=== PATIENT | female | born 1995 | race African-American/Black ===

== ENCOUNTER → 2021-03-13 13:39 | Outpatient (CLI) | payer OTHER, SELFPAY ==
[2021-03-13 15:40] LABS: Add Manual Diff / Slide Review NO; Basophils Absolute Auto 0 /uL (0-100); Basophils Percent Auto 0.3 % (0-2); Eosinophils Absolute Auto 100 /uL (0-450); Eosinophils Percent Auto 1.3 % (2-4); Hematocrit 37.4 % (36-46); Hemoglobin 12.5 g/dL (12.0-16.0); Lymphocytes Absolute Auto 1800 /uL (1100-4500); Lymphocytes Percent Auto 28.2 % (25-40); Mean Corpuscular HGB Conc 33.5 % (30-36); Mean Corpuscular Hemoglobin 31.1 PG (26-34); Mean Corpuscular Volume 92.7 fL (80-100); Monocytes Absolute Auto 300 /uL (0-900); Monocytes Percent Auto 4.4 % (3-14); Neutrophils Absolute Auto 4200 /uL (1500-7000); Neutrophils Percent Auto 65.8 % (50-75); Platelet Count 303 X10^3/uL (150-400); Red Blood Cell Count 4.04 X10^6/uL (4.0-5.2); Red Cell Distribution Width 12.3 % (11.6-14.8); White Blood Cell Count 6.4 X10^3/uL (4.5-11.0)
[2021-03-13 16:03] LABS: Alanine Aminotransferase 14 IU/L (<35); Albumin 4.3 g/dL (3.5-5.0); Albumin Globulin Ratio 1.5 (1.0-2.8); Alkaline Phosphatase 46 U/L (38-126); Aspartate Aminotransferase 20 IU/L (14-36); BUN Creatinine Ratio 20.3 (6-22); Bilirubin Total 0.7 mg/dL (0.2-1.3); Blood Urea Nitrogen 13 mg/dL (7-17); Calcium 9.6 mg/dL (8.4-10.2); Carbon Dioxide 28 mmol/L (22-32); Chloride 103 mmol/L (98-107); Estimated Glomerular Filt Rate > 60.0 mL/min (>60); Globulin 2.9 g/dL (1.7-4.1); Glucose 87 mg/dL (70-100); HEMOLYSIS < 15 (0-50); Potassium 4.1 mmol/L (3.4-5.1); Sodium 138 mmol/L (137-145); Total Protein 7.2 g/dL (6.3-8.2)
[2021-03-13 16:35] LABS: TSH w/ Reflex to FT4 0.37 uIU/mL (0.47-4.68)
== END ==
PROVIDERS: PCP Registered Nurse; Referring Provider Registered Nurse; Visit Provider Registered Nurse
DX: R53.83 Other fatigue (principal); N92.0 Excessive and frequent menstruation with regular cycle
CPT/HCPCS: 36415; 80053; 84439; 84443; 85025

== ENCOUNTER → 2021-04-26 11:59 | Outpatient (CLI) | payer OTHER, SELFPAY ==
[2021-04-26 14:19] LABS: Free T4, Direct Thyroxine 1.05 ng/dL (0.78-2.19)
[2021-04-26 14:33] LABS: Thyroid Stimulating Hormone 0.363 uIU/mL (0.47-4.68)
== END ==
PROVIDERS: PCP Registered Nurse; Referring Provider Registered Nurse; Visit Provider Registered Nurse
DX: R89.9 Unspecified abnormal finding in specimens from other organs, systems and tissues (principal)
CPT/HCPCS: 36415; 84439; 84443

== ENCOUNTER → 2021-05-28 15:38 | Outpatient (CLI) | payer OTHER, SELFPAY ==
--- NOTE | 2021-05-28 15:39 | DI.US.S_ITS ---
PROCEDURE: US PELVIC COMPLETE INDICATIONS: IRREGULAR BLEEDING POSTCOITAL TECHNIQUE: Real-time scanning was performed of the pelvic organs, with image documentation. Additional endovaginal scanning was necessary due to incomplete visualization of the adnexal and endometrial structures by transabdominal scanning. COMPARISON: None. FINDINGS: Uterus: Uterus is normal in size at 7.5 x 6.1 x 4.4 cm. The endometrium measures 9.5 mm in combined thickness. 2 a vascular hyperechoic endometrial masses are present largest measuring up to 1.5 cm and the smaller 0.4 cm. Ovaries: Dominant right follicular cyst measuring 2.0 cm; otherwise normal ovaries. Other: No pathologic free abdominal or pelvic fluid. IMPRESSION: 1. 2 echogenic endometrial masses present which may represent endometrial polyp; however other endometrial both benign or malignant neoplastic processes cannot be excluded. If indicated, pre and post contrast gynecologic protocol MRI could be performed for further assessment. Dictated by: Jean BRAGG Interpreted: Claudia Linares MD on 05/28/2021 at 16:36 Transcribed by: TRISH on 05/28/2021 at 17:01 Approved by: Claudia Linares M.D. on 05/28/2021 at 18:03
== END ==
PROVIDERS: PCP Registered Nurse; Referring Provider Obstetrics & Gynecology; Visit Provider Obstetrics & Gynecology
DX: N92.0 Excessive and frequent menstruation with regular cycle (principal); N93.0 Postcoital and contact bleeding; R19.09 Other intra-abdominal and pelvic swelling, mass and lump
CPT/HCPCS: 76830; 76856

== ENCOUNTER → 2021-08-23 16:07 | Outpatient (CLI) | payer OTHER, SELFPAY ==
[2021-08-23 17:42] LABS: COVID19 -Nasal RAPID Negative (Negative)
== END ==
PROVIDERS: PCP Registered Nurse; Visit Provider Obstetrics & Gynecology
DX: Z01.812 Encounter for preprocedural laboratory examination (principal); Z20.822 Contact with and (suspected) exposure to COVID-19
CPT/HCPCS: 87635

== ENCOUNTER 2021-08-24 10:20 | Day surgery (SDC) | payer OTHER, SELFPAY ==
[2021-08-23 08:13] VITALS: BMI 31.1
[2021-08-24] VITALS (14 sets, daily range): BP systolic 104–124; BP diastolic 57–81; PULSE 57–78; RESP 10–20; TEMP 36.3–36.8; O2SAT 98–100; BMI 31.1
--- NOTE | 2021-08-24 | PATH_ITS ---
[facility] Accession Number: [id number] . 01 Material submitted: . PART A: endometrium - ENDOMETRIAL CURETTINGS AND POLYP PART B: endocervix - ENDOCERVICAL CURETTINGS . 02 Diagnosis: A. Endometrium, Curettings and Polyp, Biopsy: Benign endometrial polyp. Separate fragments of proliferative endometrium with no evidence of neoplasia or hyperplasia. . B. Endocervical Curettings: Scant fragments of endocervical epithelium and squamous epithelium. Separate fragments of proliferative endometrium. No evidence of neoplasia or hyperplasia. [facility], [facility] 08/27/2021 1535 Local . 02 Electronically signed: . Roxann Davis MD, Pathologist NPI- [id number] . 01 Gross description: . A. The specimen is received in formalin, labeled endometrial curettings and polyp, and consists of multiple escobar-pink fragments of soft tissue admixed with clotted blood measuring 3.0 x 3.0 x 1.0 cm in aggregate. The specimen is filtered and entirely submitted in cassettes A1 and A2. B. The specimen is received in formalin, labeled endometrial curettings, and consists of multiple escobar-pink fragments of soft tissue measuring 1.5 x 1.0 x 0.2 cm in aggregate. The specimen is filtered and entirely submitted in cassette B1. ([id number]) /FRR 08/25/2021 1722 Local . 02 Pathologist provided ICD-10: N93.9 . 02 CPT . 716053, [id number] Performed at: 01 [facility] [address], [place], [place] [id number] MD Bennie Trimble MD Phone: [phone] Performed at: 02 [facility] [place] [address] [address] [place] [id number] MD Roxann Davis MD Phone: [phone]
[2021-08-24] MEDS: LACTATED RINGERS 1,000 ML 100 ML IV (10:53)
--- NOTE | 2021-08-24 11:23 | PM.PREOP ---
Pre-operative Note COVID-19 COVID-19 status: Negative Result date/Date tested (Pos, Neg/Pending): 08/23/21 Interval Note History & Physical reviewed/Exam performed by Physician: Yes Changes to H&P: No
--- NOTE | 2021-08-24 12:41 | SUR.OPER ---
Lithotomy on padded OR bed, head on pillow, arms secured on padded arm boards at <90 degrees abduction. Legs secured in padded yellow fins stirrups.
--- NOTE | 2021-08-24 13:34 | P.OP_ITS ---
Operative Date/Time/Diagnoses Date of procedure: 08/24/21 Time of procedure: 13:00 Pre-op diagnosis: Abnormal uterine bleeding due to endometrial polyp Post-op diagnosis: same Procedure & Clinicians Procedure: Procedures Operation Date: 08/24/21 11:15 Actual Procedure Side Surgeon p Hysteroscopy w/Polypectomy, D&C, Novasure Ablation David Salcedo MD Indications: Israel is a 25 yo , LMP 08/19/2021 who presents for evaluation of the aforementioned complaints.? The patient had regular predictable menses throughout her adult life up until earlier this year.? She experienced menarche at age 11 and had regular periods primarily on oral contraceptives of until discontinuing the OCs in June 2020 prior to having her laparoscopic bilateral salpingectomy performed at [facility] in October 2019.? Since that time her periods have remained regular but have become progressively heavy with severe cramping, bright red bleeding, and clots.? In addition, following her 's return from deployment in the spring, she has had repeated episodes of postcoital bleeding which can sometimes be quite heavy.? Pap smear in September 2020 was normal as have all her prior Paps.? She has in the past tried an IUD but bled for 8 straight weeks after its insertion and had a removed. Pelvic US obtained in May 2021 showed: ?FINDINGS:? ?? Uterus:? Uterus is normal in size at 7.5 x 6.1 x 4.4 cm.? The endometrium measures 9.5 mm in combined thickness.? Two avascular hyperechoic endometrial masses are present largest measuring up to 1.5 cm and the smaller 0.4 cm. ? Ovaries:? Dominant right follicular cyst measuring 2.0 cm; otherwise normal o varies. ? Other: ? No pathologic free abdominal or pelvic fluid. ? IMPRESSION:? ? 1. 2 echogenic endometrial masses present which may represent endometrial polyp; however other endometrial both benign or malignant neoplastic processes cannot be excluded.? If indicated, pre and post contrast gynecologic protocol MRI could be performed for further assessment. After discussion of all options for further evaluation and management of her complaints, the patient has opted to proceed with hysteroscopy and polypectomy, D&C, and endometrial ablation (NovaSure).? She presents today for her preoperative evaluation, counseling, and consent. Surgeon: David Salcedo Anesthesia Type: General Operative Notes Findings: Large endometrial polyp noted within the endometrial cavity and there was a smaller polyp arising from high in the endocervical canal. Both were removed during the course of the procedure prior to performance the endometrial ablation (NovaSure). First degree uterovaginal descent is noted but otherwise the vaginal/speculum examination under anesthesia was normal. Closure Type: not applicable Specimen(s): endometrial curettings, endometrial polyp and other (Endocervical curettings) Estimated blood loss (mL): 50 Blood products transfused: none Procedure in detail: With the patient under satisfactory general anesthesia in the modified dorsal lithotomy position, the perineum, vagina, and lower abdomen were prepped and draped in the usual manner for hysteroscopy. A pre-surgical safety time-out was then taken accordance with [facility] Main OR protocols. A bivalve speculum was then inserted in the vagina and the anterior lip of the cervix grasped with a single-tooth tenaculum. The endometrial cavity sounded to 10 cm and the endocervical canal was easily dilated to 8 mm. The hysteroscope was then placed into the endometrial cavity with the findings as noted above. Once the location of the polyps was identified, polyp forceps were used to remove the polyps from both the endometrial cavity as well as the high endocervical polyp. Hysteroscopic confirmation of their removal was performed prior to fractional curettage of the uterus. Following curettage, the NovaSure device was introduced with the cavity length of 6.5 cm, width 4.2 cm power 150 w and time of ablation was 62 seconds. Hysteroscope was replaced into the cavity of the uterus and the ablation of the end of medial surfaces was complete. The hysteroscope was removed from the uterine cavity and the tenaculum was removed from the anterior lip of the cervix. There was minimal bleeding from the puncture sites which was easily controlled Allis clamps and direct pressure. That point the operation was terminated patient awakened prior to being transported to the PACU for a period of observation in recovery after having tolerated the procedure well. Complications: none Post-operative Condition: stable Disposition: PACU Plan for aftercare: Routine postop care
[2021-08-24] MEDS: fentaNYL 100 MCG/2 ML INJ IV (13:57)
--- NOTE | 2021-08-24 14:00 | PM.OBPNLAB ---
Date/Time Date Patient Seen: 08/24/21 Time Patient Seen: 14:00 Pain Control Pain control: tolerating well Pelvic Exam Dilation (cm): 0 Effacement (%): 75 station: -1 (-1-2 station) Amniotic membrane status: Intact Contractions Contractions on admission: irregular Monitor mode: External Contraction pattern: Irregular Contraction phase: Resting Status status: Category l Heart Rate Baseline: 130 Monitor Accelerations: Present Monitor Decelerations: Absent Monitor Variability: Moderate Assessment and Plan Assessment: induction ongoing Plan: begin patient augmentation Comments: Uterine irritability precludes continuing PO cytotec therefore will initiate IV Pitocin
[2021-08-24] MEDS: OXYCODONE IR 5 MG TABLET PO ×2 (14:44→15:10)
== END 2021-08-24 15:15 | disposition home or self-care (01) ==
LOC: OR 10:22
PROVIDERS: PCP Registered Nurse; Referring Provider Obstetrics & Gynecology; Visit Provider Obstetrics & Gynecology
PROC: 0U5B8ZZ Destruction of Endometrium, Via Natural or Artificial Opening Endoscopic (ICD-10-PCS; CPT 58563; principal; 2021-08-24 11:15)
DX: N84.0 Polyp of corpus uteri (principal)
CPT/HCPCS: 58563; J1100; J1885; J2405; J2704; J3010